=== PATIENT | female | born 2000 | race African-American/Black ===

== ENCOUNTER 2021-07-24 16:55 | Emergency (ER) | payer OTHER ==
[~2021-07-24] VITALS: Ht 165.1 cm; Wt 44.5 kg
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
[2021-07-24] MEDS ORDERED: ACETAMINOPHEN 325 MG TABLET ONE (18:27)
[2021-07-24] MEDS ORDERED: IBUPROFEN 600 MG TABLET ONE (18:27)
[2021-07-24] MEDS ORDERED: IBUPROFEN 600 MG TABLET PO ONE (18:30)
[2021-07-24] MEDS ORDERED: ACETAMINOPHEN 325 MG TABLET PO ONE (18:30)
--- NOTE | 2021-07-24 19:12 | NUR ---
CALLED NOAM FOR READ
[2021-07-24] MEDS ORDERED: IBUP-1955 PO (19:54)
--- NOTE | 2021-07-24 20:03 | NUR ---
PT OK TO DISCHARGE PER DR CASAS. Patient discharged to home in stable condition. Written and verbal after care instructions given. Patient verbalizes understanding of instruction.Patient is awake and alert to self, day, and place. PT ambulatory with a steady gait
[2021-07-24 20:12] VITALS: BP 105/61
== END 2021-07-24 20:13 | disposition home or self-care (01) ==
LOC: ER 16:58
DX: S16.1XXA Strain of muscle, fascia and tendon at neck level, initial encounter (principal); R07.89 Other chest pain; M25.551 Pain in right hip; Z98.890 Other specified postprocedural states; V49.59XA Passenger injured in collision with other motor vehicles in traffic accident, initial encounter; Y93.89 Activity, other specified; Y92.413 State road as the place of occurrence of the external cause; Y99.8 Other external cause status
CPT/HCPCS: 71045-TC; 72170-TC